=== PATIENT | male | born 1945 | race Caucasian/White ===

== ENCOUNTER 2016-12-04 13:25 | Emergency (ER) | payer OTHER ==
[~2016-12-04] VITALS: Ht 167.6 cm; Wt 83.0 kg
[~2016-12-04 13:25] MED LIST: CIPR500T4 PO; LISI-357 PO; METO25 PO; MULT1TAB PO; VITA20002 PO
[2016-12-04 13:38] VITALS: BP 154/92; PULSE 62; RESP 16; TEMP 97.6; O2SAT 97
[2016-12-04] MEDS ORDERED: SODIUM CHLORIDE 0.9% FLUSH 5 ML FLUSH IVF PRN (15:15)
[2016-12-04] MEDS ORDERED: methylPREDNISolone SOD SUCC 125 MG/2 ML VIAL IVP ONE (15:15)
[2016-12-04] MEDS: RESP: ALBUTEROL 2.5 MG/IPRATROPIUM 0.5 MG NEB (SCH) INH ×3 (15:19→15:45)
--- NOTE | 2016-12-04 15:21 | PD ---
HPI Chief Complaint: Cold / Flu Symptoms Time Seen by Provider: 15:03 Travel History International Travel<30 days: No Contact w/Intl Traveler<30days: No Traveled to known affect area: No History of Present Illness HPI Patient is a 71-year-old male who presents to emergency room for evaluation of increased cough, congestion and wheezing. Patient reports that for the past 3 months, he has had productive cough. Patient reports that he has also been wheezing as well, denies history of asthma or history of COPD, reports that he was never smoker in the past. Patient reports that he has seen his doctor at the [facility] as well as gone the the ER for evaluation of this cough, reports that they did give him neb treatments as well as albuterol for his symptoms and reports that he would improve on these medications. Patient reports that every time he was seen, he did get an xray of his chest, reports that the first xray showed a pneumonia but repeat xray of chest during next visit was negative for pneumonia. Patient with no fever/chills. No recent travels/trips. Denies chest pain. PFSH Past Medical History Hypertension: Yes Social History Alcohol Use: No Tobacco Use: No Allergies-Medications (Allergen,Severity, Reaction): Coded Allergies: No Known Allergies (Unverified , 12/04/16) Reported Meds & Prescriptions Reported Meds & Active Scripts Active Proair Hfa 8.5 GM Inh (Albuterol Sulfate) 90 Mcg/Act Aer 2 Puff INH Q4-6H PRN 108 mcg/actuation Azithromycin 500 Mg Tab 500 Mg PO DAILY Prednisone 20 Mg Tab 20 Mg PO BID 5 Days Cipro (Ciprofloxacin HCl) 500 Mg Tab 500 Mg PO BID Reported Vitamin D-3 (Cholecalciferol) 2 000 Tab Unknown Dose PO DAILY Centrum Silver Adult 50+ (Multiple Vitamins W/ Minerals) 1 Tab Tab 1 Tab PO DAILY Lisinopril 5 mg (Lisinopril) 5 Mg Tab Unknown Dose PO DAILY Metoprolol Tartrate 25 mg (Metoprolol Tartrate) 25 Mg Tab Unknown Dose PO DAILY Review of Systems General / Constitutional: No: Fever Eyes: No: Visual changes HENT: No: Headaches Cardiovascular: No: Chest Pain or Discomfort Respiratory: Positive: Cough, Shortness of Breath, Wheezing Gastrointestinal: No: Abdominal Pain Genitourinary: No: Dysuria Musculoskeletal: No: Pain Skin: No Rash Neurologic: No: Weakness Psychiatric: No: Depression Endocrine: No: Polydipsia Hematologic/Lymphatic: No: Easy Bruising Physical Exam Narrative GENERAL: mild distress SKIN: Warm and dry. HEAD: Atraumatic. Normocephalic. EYES: Pupils equal and round. No scleral icterus. No injection or drainage. ENT: No nasal bleeding or discharge. Mucous membranes pink and moist. NECK: Trachea midline. No JVD. CARDIOVASCULAR: Regular rate and rhythm. No murmur appreciated. RESPIRATORY: Patient with diffuse wheezing to upper and lower lobes of lungs GASTROINTESTINAL: Abdomen soft, non-tender, nondistended. Hepatic and splenic margins not palpable. MUSCULOSKELETAL: No obvious deformities. No clubbing. No cyanosis. No edema. NEUROLOGICAL: Awake and alert. No obvious cranial nerve deficits. Motor grossly within normal limits. Normal speech. PSYCHIATRIC: Appropriate mood and affect; insight and judgment normal. Data Data Last Documented VS Vital Signs Date Time Temp Pulse Resp B/P Pulse Ox O2 Delivery O2 Flow Rate FiO2 12/04/16 13:38 97.6 62 16 154/92 97 Orders Complete Blood Count With Diff (12/04/16 15:10) Comprehensive Metabolic Panel (12/04/16 15:10) Influenzae A/B Antigen (12/04/16 15:10) Iv Access Insert/Monitor (12/04/16 15:10) Chest, Single Ap (12/04/16 15:10) Sodium Chloride 0.9% Flush (Ns Flush) (12/04/16 15:15) Methylprednisolone So Succ Inj (Solumedr (12/04/16 15:15) Albuterol-Ipratropium Neb (Duoneb Neb) (12/04/16 15:15) Azithromycin (Zithromax) (12/04/16 16:45) Labs Laboratory Tests Test 12/04/16 15:30 White Blood Count 8.5 TH/MM3 Red Blood Count 4.58 MIL/MM3 Hemoglobin 14.1 GM/DL Hematocrit 39.9 % Mean Corpuscular Volume 87.1 FL Mean Corpuscular Hemoglobin 30.8 PG Mean Corpuscular Hemoglobin 35.4 % Concent Red Cell Distribution Width 13.0 % Platelet Count 228 TH/MM3 Mean Platelet Volume 7.4 FL Neutrophils (%) (Auto) 52.0 % Lymphocytes (%) (Auto) 21.8 % Monocytes (%) (Auto) 11.7 % Eosinophils (%) (Auto) 13.8 % Basophils (%) (Auto) 0.7 % Neutrophils # (Auto) 4.3 TH/MM3 Lymphocytes # (Auto) 1.9 TH/MM3 Monocytes # (Auto) 1.0 TH/MM3 Eosinophils # (Auto) 1.2 TH/MM3 Basophils # (Auto) 0.1 TH/MM3 CBC Comment DIFF FINAL Differential Comment Sodium Level 142 MEQ/L Potassium Level 4.3 MEQ/L Chloride Level 108 MEQ/L Carbon Dioxide Level 24.7 MEQ/L Anion Gap 9 MEQ/L Blood Urea Nitrogen 21 MG/DL Creatinine 0.89 MG/DL Estimat Glomerular Filtration 84 ML/MIN Rate Random Glucose 96 MG/DL Calcium Level 8.8 MG/DL Total Bilirubin 0.6 MG/DL Aspartate Amino Transf 21 U/L (AST/SGOT) Alanine Aminotransferase 48 U/L (ALT/SGPT) Alkaline Phosphatase 51 U/L Total Protein 7.1 GM/DL Albumin 4.1 GM/DL MDM Medical Decision Making Medical Screen Exam Complete: Yes Emergency Medical Condition: Yes Interpretation(s) Vital Signs Date Time Temp Pulse Resp B/P Pulse Ox O2 Delivery O2 Flow Rate FiO2 12/04/16 13:38 97.6 62 16 154/92 97 Differential Diagnosis Pneumonia, asthma exacerbation, acute on chronic bronchitis, influenza Narrative Course Patient is a 71-year-old male who presents to emergency room with complaints of increased cough, congestion and wheezing for the past 3 months. Patient has followed-up with his primary care doctor and has gone to the emergency room for similar symptoms over the past 3 months, reports that he is usually placed on steroids and breathing treatments and does well on them. Patient reports that he was took steroids 3 weeks ago. Patient reports that he is bringing up thick mucus with his cough, reports that he is having increased wheezing Chest x-ray ordered, labs ordered, breathing treatments ordered as well as IV Solu-Medrol. Plan to monitor patient carefully CBC & BMP Diagram 12/04/16 15:30 Microbiology Date/Time Procedure Status Source Growth 12/04/16 15:30 Influenza Types A,B Antigen ([facility]) - Final Complete Nasal Aspirate NEGATIVE FOR FLU A AND B ANTIGEN.... X-ray of chest with no acute disease Patient reevaluated, patient feeling much better at this time. Patient with decreased wheezing, discussed need to follow with collaborating supervising physician as outpatient. Signs and symptoms of when to return to the emergency room was reviewed patient in detail. Diagnosis Primary Impression: Acute bronchitis Qualified Code: J20.9 - Acute bronchitis, unspecified organism Referrals: Dejuan Sutton MD Patient Instructions: General Instructions Additional Instructions: Please follow-up with your primary care doctor as soon as possible Please follow-up with a collaborating supervising physician Return to emergency room as needed or if symptoms worsen or progress Med/Other Pt SpecificInfo: Prescription(s) given Scripts Albuterol 8.5 GM Inh (Proair Hfa 8.5 GM Inh)90 Mcg/Act Aer2 Puff INH Q4-6H PRN ( SHORTNESS OF BREATH) #1 INHALER Ref 0 108 mcg/actuation Prov:Poonam Cloud DO 12/04/16 Azithromycin 500 Mg Squ095 Mg PO DAILY #5 TAB Ref 0 Prov:Poonam Cloud DO 12/04/16 Prednisone 20 Mg Tab20 Mg PO BID 5 Days Ref 0 Prov:Poonam Cloud DO 12/04/16 Disposition: 01 DISCHARGE HOME Condition: Stable Poonam Cloud DO Dec 04, 2016 15:21
--- NOTE | 2016-12-04 15:39 | RADHPO ---
EXAM DATE/TIME: 12/04/2016 15:14 [facility] COMPARISON: No previous studies available for comparison. INDICATIONS : Cough, congestion, and shortness of breath for over two months. MEDICAL HISTORY : None. SURGICAL HISTORY : None. ENCOUNTER: Initial ACUITY: 2 months PAIN SCORE: 0/10 LOCATION: Bilateral chest FINDINGS: A single view of the chest demonstrates the lungs to be symmetrically aerated without evidence of mas s, infiltrate or effusion. The cardiomediastinal contours are unremarkable. Osseous structures are intact. CONCLUSION: No evidence of acute cardiopulmonary disease. Sae Sanchez MD on December 04, 2016 at 15:37 Board Certified Radiologist. This report was verified electronically.
[2016-12-04 15:49] LABS: AUTOMATED NEUTROPHIL # 4.3 TH/MM3 (1.8-7.7); BASOPHIL # 0.1 TH/MM3 (0-0.2); BASOPHIL % 0.7 % (0.0-2.0); EOSINOPHIL # 1.2 TH/MM3 (0-0.4); EOSINOPHIL % 13.8 % (0.0-4.0); HEMATOCRIT 39.9 % (39.0-51.0); HEMO FLAGS DIFF FINAL; LYMPH % 21.8 % (9.0-44.0); LYMPHOCYTE # 1.9 TH/MM3 (1.0-4.8); MEAN CELL VOLUME 87.1 FL (80.0-100.0); MEAN CORPUSCULAR HEMOGLOBIN 30.8 PG (27.0-34.0); MEAN CORPUSCULAR HGB CONC 35.4 % (32.0-36.0); MONO % 11.7 % (0.0-8.0); PLATELET COUNT 228 TH/MM3 (150-450); RED BLOOD COUNT 4.58 MIL/MM3 (4.50-5.90); WHITE BLOOD COUNT 8.5 TH/MM3 (4.0-11.0)
[2016-12-04 15:55] LABS: CHLORIDE 108 MEQ/L (98-107); POTASSIUM 4.3 MEQ/L (3.5-5.1); SODIUM (NA) 142 MEQ/L (136-145)
[2016-12-04 15:59] LABS: ANION GAP 9 MEQ/L (5-15); BICARBONATE 24.7 MEQ/L (21.0-32.0); BLOOD UREA NITROGEN 21 MG/DL (7-18)
[2016-12-04 16:02] LABS: ALT (GPT) 48 U/L (12-78); AST (GOT) 21 U/L (15-37); GLOMERULAR FILTRATION RATE 84 ML/MIN (>89)
[2016-12-04 16:04] LABS: TOTAL BILIRUBIN ADULT 0.6 MG/DL (0.2-1.0)
[2016-12-04 16:05] LABS: ALKALINE PHOSPHATASE 51 U/L (45-117)
[2016-12-04] MEDS ORDERED: AZITHROMYCIN 250 MG TAB PO ONE (16:45)
[2016-12-04] MEDS ORDERED: ALBUAER3 INH (16:47)
[2016-12-04] MEDS ORDERED: AZIT500T2 PO (16:47)
[2016-12-04] MEDS ORDERED: PRED20 PO (16:47)
== END 2016-12-04 17:11 | disposition home or self-care (01) ==
LOC: PHED 13:25
DX: J20.9 Acute bronchitis, unspecified (principal); I10 Essential (primary) hypertension
CPT/HCPCS: 71010; 80053; 85025; 87804; 94640; 94664; 96374; 99283; J2930